=== PATIENT | male | born 1985 | race Caucasian/White ===

== ENCOUNTER 2018-03-31 22:55 | Emergency (ER) | payer SELFPAY ==
[2018-03-31 23:40] VITALS: BP 160/95; PULSE 88; RESP 20; TEMP 98.4; O2SAT 96
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
--- NOTE | 2018-04-01 10:54 | RAD ---
PROCEDURE: Right Hip Radiographs. HISTORY: injury COMPARISON: None. FINDINGS: BONES: Bone alignment and mineralization are normal. There is no acute displaced fracture or bone destruction. JOINTS: Normal. SOFT TISSUES: Normal. OTHER FINDINGS: None. IMPRESSION: No acute displaced fracture or dislocation.
== END 2018-04-01 00:52 | disposition home or self-care (01) ==
LOC: C.ER 22:55
DX: S70.01XA Contusion of right hip, initial encounter (principal); V03.10XA Pedestrian on foot injured in collision with car, pick-up truck or van in traffic accident, initial encounter; Y92.410 Unspecified street and highway as the place of occurrence of the external cause